=== PATIENT | male | born 1975 | race Caucasian/White ===

== ENCOUNTER 2018-02-08 16:50 | Inpatient (IN) | payer BC, OTHER ==
[~2018-02-08] VITALS: Ht 190.5 cm; Wt 185.1 kg
[2018-02-08 17:31] LABS: BASOPHILS % (AUTO) 0.5 % (0.0-5.0); EOSINOPHILS % (AUTO) 0.1 % (0.0-8.0); HEMATOCRIT 46.9 % (42-54); LYMPHOCYTES % (AUTO) 7.2 % (21.0-51.0); MEAN CORPUSCULAR HEMOGLOBIN 30.7 pg (27.0-33.0); MEAN CORPUSCULAR HGB CONC 34.1 g/dL (32.0-36.0); NEUTROPHILS % (AUTO) 85.2 % (40.0-77.0); PLATELET COUNT (AUTO) 306 K/uL (130-400); RED BLOOD CELL COUNT(AUTO) 5.21 MIL/uL (4.50-6.20); RED CELL DISTRIBUTION WIDTH 13.2 % (11.0-15.5); WHITE BLOOD COUNT (AUTO) 20.9 K/uL (4.8-10.8)
[2018-02-08 17:45] LABS: CREATININE 0.8 mg/dL (0.5-1.5); POTASSIUM 3.9 mmol/L (3.5-5.1)
[2018-02-08 17:49] LABS: ALBUMIN 3.6 g/dL (3.5-5.0); BILIRUBIN,TOTAL 0.7 mg/dL (0.2-1.0)
[2018-02-08] MEDS ORDERED: SODIUM CHLORIDE 0.9% 1000ML 1,000 ML IV ONE (17:49)
[2018-02-08] MEDS ORDERED: MORPHINE SULFATE 4 MG/1ML SYG ONE (17:49)
[2018-02-08] MEDS ORDERED: ONDANSETRON HCL 4 MG/2 ML VIAL ONE (17:49)
[2018-02-08] MEDS ORDERED: IOPAMIDOL-370 75 ML VIAL IV ONE (17:58)
[2018-02-08 18:18] LABS: PARTIAL THROMBOPLASTIN TIME 27.5 SEC (26.3-35.5)
[2018-02-08 18:27] LABS: INR 1.03 (0.85-1.15); PROTHROMBIN TIME 10.8 SEC (9.6-11.6)
[2018-02-08] MEDS ORDERED: ZOSYN 3.375GM+NS 50ML 50 ML IV ONE (19:13)
[2018-02-08] MEDS ORDERED: MEPERIDINE-PF 25 MG/ML SYG ONE (19:14)
[2018-02-08] MEDS ORDERED: LACTATED RINGERS 1000ML 1,000 ML IV ONE (21:08)
[2018-02-08 23:10] VITALS: BP 114/61
[2018-02-08] MEDS: PIPERACILLIN SODIUM/TAZOBACTAM 3.375 GM VIAL IV SCH (23:30)
[2018-02-08] MEDS ORDERED: MEPERIDINE-PF 25 MG/ML SYG IV PRN (23:30)
[2018-02-08] MEDS ORDERED: ONDANSETRON HCL MDV 20ML 2 MG/ML VIAL IVP PRN (23:30)
[2018-02-09] VITALS (24 sets, daily range): BP systolic 104–140; BP diastolic 47–82
[2018-02-09] MEDS: LACTATED RINGERS 1000ML 1,000 ML IV SCH ×5 (00:30→10:20)
[2018-02-09 04:32] LABS: HEMATOCRIT 42.9 % (42-54); MEAN CORPUSCULAR HEMOGLOBIN 31.3 pg (27.0-33.0); MEAN CORPUSCULAR HGB CONC 34.7 g/dL (32.0-36.0); MEAN CORPUSCULAR VOLUME 90.1 fL (79-99); PLATELET COUNT (AUTO) 266 K/uL (130-400); RED BLOOD CELL COUNT(AUTO) 4.76 MIL/uL (4.50-6.20); RED CELL DISTRIBUTION WIDTH 13.6 % (11.0-15.5)
[2018-02-09 04:49] LABS: CREATININE 0.8 mg/dL (0.5-1.5); POTASSIUM 3.5 mmol/L (3.5-5.1)
[2018-02-09] MEDS: PIPERACILLIN SODIUM/TAZOBACTAM 3.375 GM VIAL IV SCH (05:34)
[2018-02-09] MEDS ORDERED: MIDAZOLAM HCL 1 MG/ML 2ML VIAL ONE (10:30)
[2018-02-09] MEDS ORDERED: LIDOCAINE PF 2% 5ML ABBOJECT ONE (10:30)
[2018-02-09] MEDS ORDERED: GLYCOPYRROLATE 0.2 MG/ML 5 ML VIAL ONE (10:30)
[2018-02-09] MEDS ORDERED: PROPOFOL 10 MG/ML 20ML VIAL IV ONE ×2 (10:30→11:24)
[2018-02-09] MEDS ORDERED: ONDANSETRON HCL 4 MG/2 ML VIAL ONE (10:30)
[2018-02-09] MEDS ORDERED: DEXAMETHASONE SOD PHOSPHATE 10MG/ML 1ML VIAL ONE (10:30)
[2018-02-09] MEDS ORDERED: FENTANYL CITRATE PF 50 MCG/1 ML 2ML VIAL ONE ×2 (10:30→12:32)
[2018-02-09] MEDS ORDERED: LACTATED RINGERS 1000ML 1,000 ML IV SCH (11:50)
[2018-02-09] MEDS ORDERED: ACETAMINOPHEN-CODEINE 300/30MG TAB PO PRN (12:00)
[2018-02-09] MEDS: ZOSYN 3.375GM+NS 50ML 50 ML IV SCH ×2 (14:05→20:58)
[2018-02-09] MEDS: ACETAMINOPHEN-CODEINE 300/30MG TAB PO PRN (19:18)
[2018-02-10 03:30] VITALS: BP 119/61
[2018-02-10] MEDS: ZOSYN 3.375GM+NS 50ML 50 ML IV SCH (05:56)
[2018-02-10 08:00] VITALS: BP 125/71
[2018-02-10] MEDS ORDERED: ACET1TAB12 PO (08:54)
[2018-02-10] MEDS: ACETAMINOPHEN-CODEINE 300/30MG TAB PO PRN (08:59)
[2018-02-10 11:44] VITALS: BP 118/67
== END 2018-02-10 13:30 | disposition home or self-care (01) | DRG 342 ==
LOC: EDH 16:50 → EDHIP 19:08 → 3DH 22:38
PROVIDERS: ADMIT Surgery; ATTEND Surgery
PROC: 0DTJ0ZZ Resection of Appendix, Open Approach (ICD-10-PCS; principal; 2018-02-09 11:00)
DX: K35.80 Unspecified acute appendicitis (principal); Z68.43 Body mass index [BMI] 50.0-59.9, adult; E66.01 Morbid (severe) obesity due to excess calories; Z88.8 Allergy status to other drugs, medicaments and biological substances
CPT/HCPCS: 36415; 74177; 80048; 80053; 83690; 85025; 85027; 85610; 85730; 88304; 94660; J1100; J2001; J2175; J2250; J2270; J2405; J2543; J2704; J3010; J3490; J7030; J7120; Q9967

== ENCOUNTER → 2018-07-18 | Outpatient (CLI) | payer BC ==
[~2018-07-18] MED LIST: ACET1TAB12 PO
== END | disposition home or self-care (01) ==
LOC: SLP 21:24
PROVIDERS: ATTEND Internal Medicine Cardiovascular Disease
DX: G47.33 Obstructive sleep apnea (adult) (pediatric) (principal)
CPT/HCPCS: 95810

== ENCOUNTER → 2018-10-04 | Outpatient (CLI) | payer BC | END | disposition home or self-care (01) | LOC: SLP 20:32 | PROVIDERS: ATTEND Internal Medicine Cardiovascular Disease | DX: G47.33 Obstructive sleep apnea (adult) (pediatric) (principal) | CPT/HCPCS: 95811 ==